=== PATIENT | female | born 1995 | race Caucasian/White ===

== ENCOUNTER 2016-05-21 06:29 | Observation (INO) ==
[2016-05-21 06:48] VITALS: BP 115/72
[2016-05-21 07:14] LABS: Bilirubin,Urine Negative (Negative); Blood,Urine Negative (Negative); Clarity,Urine Slightly Cloudy (Clear); Color,Urine Yellow (Yellow); Glucose,Urine (UA) Normal (Normal); Ketones,Urine 15 mg/dL (Negative); Leukocyte Esterase,Urine Moderate (Negative); Nitrite,Urine Negative (Negative); Protein,Urine Negative (Neg-Trace); Specific Gravity,Urine 1.025 (1.010-1.025); Urobilinogen,Urine Normal (Normal)
[2016-05-21 07:26] LABS: Amorphous Sediment,Urine Many (Few); Granular Casts,Urine Few per lpf (None Seen); Squamous Epithelial Cell,Urine Many per lpf (None-Few)
[2016-05-21 07:27] LABS: Bacteria,Urine Many per hpf (None-Few); RBC,Urine 0-3 per hpf (0-3)
[2016-05-21] MEDS ORDERED: Ringers Solution, Lactated 1,000 ML IVC ONE (07:53)
[2016-05-21] MEDS ORDERED: *HR* Promethazine 25 MG/ML VIAL IVP PRN (07:54)
[2016-05-21] MEDS ORDERED: Ringers Solution, Lactated 1,000 ML ONE (07:59)
[2016-05-21 08:09] LABS: Basophils # 0.1 K/mcL (0.0-0.2); Basophils % 0.4 %; Eosinophils # 0.3 K/mcL (0.0-0.6); Eosinophils % 1.1 %; Hematocrit 36.4 % (35.3-44.9); Hemoglobin 12.3 g/dL (11.5-15.4); Lymphocytes # 2.8 K/mcL (0.6-4.6); Lymphocytes % 11.2 %; Mean Corpuscular HGB Conc 33.8 g/dL (31.6-35.5); Mean Corpuscular Volume 91.7 fL (83.0-100.0); Mean Platelet Volume 10.2 fL (9.4-12.4); Monocytes # 2.9 K/mcL (0.0-1.3); Monocytes % 11.3 %; Neutrophils # 18.7 K/mcL (1.6-8.9); Platelet Count 383 K/mcL (140-400); Red Blood Count 3.97 M/mcL (3.82-4.97); Red Cell Distribution Width 13.2 % (11.5-14.5)
[2016-05-21 08:18] LABS: BUN/Creatinine Ratio 11 (6-26); Blood Urea Nitrogen 6 mg/dL (7-20); Calcium 9.2 mg/dL (8.6-10.8); Carbon Dioxide 20 mEq/L (19-29); Chloride 105 mEq/L (98-109); Glucose 91 mg/dL (70-99); Osmolality,Calculated 281 (280-300); Potassium 3.6 mEq/L (3.5-4.5); Sodium 137 mEq/L (136-145); eGFR For African Americans > 60; eGFR For Non-African Americans > 60
--- NOTE | 2016-05-21 08:45 | OB/GYN Progress Note ---
Date of Encounter: 05/21/16 Time of Encounter: 08:42 - Assessment and Plan (1) Nausea and vomiting during Current Visit: Yes Status: Acute IV LR 2 liter bolus. CBC and Chem. Phenergan PRN for nausea. Plan to discharge home with rx for phenergan if pt able to tolerate PO liquids after fluid bolus. (2) 36 weeks gestation of Current Visit: Yes Status: Acute (3) NST (non-stress test) reactive Current Visit: Yes Status: Acute (4) Decreased movement affecting management of mother, antepartum Current Visit: Yes Status: Acute Pt notes good movement since arrival to triage. Subjective - Subjective Interval history: 20 year-old presenting at 36w2d with c/o nausea, vomiting, dizziness x 4 days. She reports decreased movement that has improved since she arrived to triage. No LOF, VB, or strong contractions. She states she has been nauseated and vomiting after eating for the last 4 days. She states she has also felt weak and dizzy. She has tried taking zofran ODT at home without improvement of sx. Antepartum ROS: movement normal, no loss of fluid, no vaginal bleeding, no contractions Objective - Vital Signs Vital Signs: Vital Signs Temp Pulse Resp BP 05/21/16 06:37 98.9 F 123 16 115/72 Intake and Output 05/20/16 05/21/16 05/21/16 23:59 07:59 15:59 Other: Weight 58 kg Patient Weight 05/21/16 23:59 Weight 58 kg - Exam FHR: category 1 FHR comments: NST reactive Auscultation: bilateral: normal Abdomen: Present: soft, gravid. Absent: tenderness Uterus: Absent: tenderness - Labs Labs: Abnormal lab results WBC 25.2 K/mcL (4.3-11.1) H 05/21/16 07:58 Neutrophils # 18.7 K/mcL (1.6-8.9) H 05/21/16 07:58 Monocytes # 2.9 K/mcL (0.0-1.3) H 05/21/16 07:58 BUN 6 mg/dL (7-20) L 05/21/16 07:58 Creatinine 0.55 mg/dL (0.57-1.11) L 05/21/16 07:58 Urine Clarity Slightly Cloudy (Clear) A 05/21/16 07:00 Urine Ketones 15 mg/dL (Negative) H 05/21/16 07:00 Ur Leukocyte Esterase Moderate (Negative) H 05/21/16 07:00 Urine Microscopic WBC 5-15 per hpf (0-3) H 05/21/16 07:00 Ur Squamous Epith Cells Many per lpf (None-Few) H 05/21/16 07:00 Amorphous Sediment Many (Few) H 05/21/16 07:00 Urine Bacteria Many per hpf (None-Few) H 05/21/16 07:00 Granular Casts Few per lpf (None Seen) H 05/21/16 07:00 Ur Culture Indicated? YES (NO) A 05/21/16 07:00
== END 2016-05-21 12:30 | disposition home or self-care (01) ==
LOC: 1NENULAB
PROVIDERS: ADMIT Advanced Practice Midwife; ATTEND Advanced Practice Midwife

== ENCOUNTER 2016-06-15 05:03 | Inpatient (IN) ==
[~2016-06-15 05:03] MED LIST: Famotidine 20 MG/2 ML VIAL IVP PRN; Metoclopramide 10 MG/2 ML VIAL IVP PRN; Naloxone 0.4 MG/ML INJ IVP PRN
[2016-06-15] MEDS ORDERED: *HR* Nalbuphine 20 MG/ML AMPUL IVP PRN (05:12)
[2016-06-15] MEDS ORDERED: Ringers Solution, Lactated 1,000 ML IVC SCH (05:15)
[2016-06-15 05:36] LABS: Basophils # 0.1 K/mcL (0.0-0.2); Basophils % 0.4 %; Eosinophils # 0.3 K/mcL (0.0-0.6); Eosinophils % 1.1 %; Hematocrit 40.1 % (35.3-44.9); Hemoglobin 13.2 g/dL (11.5-15.4); Immature Granulocytes % 1.2 % (0-4); Lymphocytes # 3.3 K/mcL (0.6-4.6); Lymphocytes % 13.2 %; Mean Corpuscular HGB Conc 32.9 g/dL (31.6-35.5); Mean Corpuscular Hemoglobin 29.7 pg (28.0-33.3); Mean Corpuscular Volume 90.1 fL (83.0-100.0); Mean Platelet Volume 10.5 fL (9.4-12.4); Monocytes # 2.6 K/mcL (0.0-1.3); Monocytes % 10.3 %; Neutrophils # 18.2 K/mcL (1.6-8.9); Platelet Count 433 K/mcL (140-400); Red Blood Count 4.45 M/mcL (3.82-4.97); Red Cell Distribution Width 13.1 % (11.5-14.5); Segmented Neutrophils % 73.8 %
[2016-06-15] MEDS ORDERED: Epidural Premix (fent/bupiv) 110 ML EP SCH (05:45)
[2016-06-15] MEDS ORDERED: Epidural Premix (fent/bupiv) 110 ML EP ONE ×2 (05:47→08:10)
--- NOTE | 2016-06-15 06:34 | Anesthesia Evaluation PreOp ---
Date of Encounter: 06/15/16 Time of Encounter: 05:50 - Past History Planned Operation: CLARISA Cardiac History: Denies any Significant Hx Pulmonary History: Denies Any Significant HX VIDEOGAME TESTER History: Denies Any Significant HX Anesthesia History: No Prior Anesthetic Complications : Yes Test: Positive Alcohol Use: none Drug use: none Medications and Allergies One Tablet 1 tab PO DAILY 05/21/16 [History] Allergies Penicillins [PCN] Allergy (Mild, Verified 05/21/16 06:49) See Comments both parents allergic and wasw told she was unsure of reaction - Meds/Allergy Pre-op Review Medications Reviewed: Yes Allergies Reviewed: Yes Beta Blockers on Current Med List: No Anesthesia Results - Labs 06/15/16 05:18 Anesthesia Exam Height: 59" Weight: 62kg Pain Scale: 6 - HEENT Pupil (Motor): Pupils equal Mallampati: II Teeth: Normal Oral Opening: Greater than 3 - VIDEOGAME TESTER LOC: Oriented VIDEOGAME TESTER Motor: Normal RUE, Normal LUE, Normal RLE, Normal LLE, Normal Face VIDEOGAME TESTER Sensory: Normal: RUE, LUE, RLE, LLE, Face Anesthesia Assess/Plan ASA Score: 1 Modified Leeds Scale for Level of Consciousness: Cooperative, oriented, and tranquil Anesthetic Plan: Regional Autologous Blood: No Monitoring Plan: Standard Monitors
--- NOTE | 2016-06-15 06:38 | Anesthesia Procedures ---
Date of Encounter: 06/15/16 Time of Encounter: 05:50 Procedures: Anesthesia - Epidural/Spinal Patient ID/Chart reviewed: Yes Patient examined: Yes OB Eval: : 1 OB Eval: Hx Para: 0 OB Eval: Contractions: Non-stressed pattern Consent Obtained: Yes Supplemental Oxygen: None/Room Air Site Prep: Aseptic Technique, Sterile prep and drape, Povidone-Iodine 1% Patient position: upright Local Anesthetic: Lidocaine 1% Amount of Local Anesthetic used: 3 Touhy Needle Gauge: 18 Touhy Needle Depth (cm): 4 Catheter Depth at Skin (cm): 9 Test Dose (1.5% Lido + Epi): Volume given (mls): 3 Test Dose Result: Negative Infusion Rate (mls/hr): [address]: Tegaderm, Tape Interspace Used: L3-L4 Loss of Resistance (MISSY): Yes Blood: No CSF: No Paresthesia: No Procedure: moderately difficult two attempts at L3-4 space. scoliosis noted and explained to patient epidural may be difficult and the potential for SH was increased. Vitals + FHT's: stable throughout see nursing notes
--- NOTE | 2016-06-15 06:47 | OB/GYN History & Physical ---
Date of Encounter: 06/15/16 Time of Encounter: 06:44 Assessment and Plan (1) 39 weeks gestation of Current visit: Yes Status: Acute admitted for delivery (2) Spontaneous onset of labor Current visit: Yes Status: Acute Admit for labor Patient has epidural for pain management History of Present Illness Chief complaint: Spontaneous labor HPI: Ms. Baldwin is a 20 year old female at 39w6d presents to labor and delivery with contractions that became more uncomfortable around 0200. Patient denies LOF reports some blood show and reports +FM. Patient was 5cm on admission and progressed to 6cm. Patient was admitted for labor. Blood type is A +, Rubella: Immune, Hep B: Nonreactive, GBS: Negative. Past Med Surg Social Fam HX - Past Medical History Source: patient Medical history: no medical history Psychiatric history: no psych history - Past Surgical History Surgical History: no surgical history - Social History Smoking Status: Never smoker Smokeless Tobacco Status: No Alcohol use: none Drug use: none Current living situation: Home - Independent Activity Level: Independent ambulation Recent Out of Country Travel Within the Last 8 Weeks: No Exposure or Possible Exposure to Illness During Travel: No - Family History Mother Living Status: Still Living Hx Family Cardiac Disorders: No Hx Family Respiratory Disorders: No Hx Family Cancer: No Hx Family GI Disorders: No Hx Family Genitourinary Disorders: No Hx Family Endocrine Disorder: No Hx Family Musculoskeletal Disorders: No Hx Family Neuromuscular Disorders: No Hx Family Neurologic Disorders: No Hx Family HEENT Disorders: No Hx Family Autoimmune Disorders: No Hx Family Reproductive Disorders: No Hx Family Psychosocial Disorders: No Hx Family Medical Disorders: No Obstetrical History - Pregnancies : 1 Para: 0 Term: 0 : 0 Ab's: 0 Livin Medications and Allergies One Tablet 1 tab PO DAILY 05/21/16 [History] Allergies Penicillins [PCN] Allergy (Mild, Verified 05/21/16 06:49) See Comments both parents allergic and wasw told she was unsure of reaction Review of System OB - Constitutional Constitutional ROS IM: no chills, no fatigue, no fever(s), no headache(s), no night sweats - Cardiovascular Cardiovascular: no chest pain, no edema, no palpitations, no rapid heart rate, no syncope - Respiratory Respiratory: no cough, no dyspnea - Gastrointestinal Gastrointestinal: no abdominal pain, no constipation, no cramping, no diarrhea, no dysphagia, no heartburn, no nausea, no vomiting - Genitourinary Genitourinary: vaginal discharge, no abnormal vaginal bleeding, no dysuria, no flank pain, no urinary frequency, no urinary urgency, no vaginal odor, no vaginal pruritis Exam - Constitutional Constitutional: well developed, well nourished, no acute distress, average body habitus - HEENT HEENT: Normocephaly, Mucus Membranes Moist - Neck Neck exam: full ROM, supple - Lungs Respiratory exam: CTAB - Cardiovascular Cardiovascular exam: RRR, +S1, +S2 - Abdomen Abdomen: Present: bowel sounds normal, gravid, non tender - Extremities Extremities exam: full ROM, normal capillary refill Deep Tendon Reflex Grade: 2+ Normal - Cervix Dilation: 6 Effacement: 80 Station: -1 - Anus/Rectum Anus/Rectum: Present: normal perianal skin - Comments Comments: FHR 145 bpm moderate variability +15x15 accels early decels noted. Contractions 1-3 min apart. Results Result Diagrams: 06/15/16 05:18 Abnormal lab results WBC 24.7 K/mcL (4.3-11.1) H 06/15/16 05:18 Plt Count 433 K/mcL (140-400) H 06/15/16 05:18 Neutrophils # 18.2 K/mcL (1.6-8.9) H 06/15/16 05:18 Monocytes # 2.6 K/mcL (0.0-1.3) H 06/15/16 05:18 All other labs normal. - VTE Reasons for not Prescribing Prophylaxis: Treatment not Indicated - Low risk for VTE
--- NOTE | 2016-06-15 07:43 | OB Labor Progress Note ---
Date of Encounter: 06/15/16 Time of Encounter: 07:41 Labor Progress Note - Subjective Subjective: Patient breathing through contractions. Patient reports mild relief with epidural. Will notify anesthesia to check epidural. - Cervix Cervix: 7/90/0 - Heart Tones Heart Tones: 145 bpm moderate variability +15x15 accels no decels noted. - [place]: 1-3 min apart - Interventions Interventions: SVE, AROM. Moderate amount of clear fluid. - Plan Plan: Continue labor management.
[2016-06-15] MEDS ORDERED: *HR* Ropivacaine/PF 0.2% 10 ML AMPUL ONE (08:20)
[2016-06-15] MEDS ORDERED: *HR* FentaNYL (PF) 100 MCG/2 ML VIAL IVP ONE (09:28)
--- NOTE | 2016-06-15 09:33 | Anesthesia Progress Note ---
Date of Encounter: 06/15/16 Time of Encounter: 08:20 Anesthesia Note - Note Note: 06/15/16 09:18 patient evaluated for labor pain post epidural placement, sensory level checked and feeling noted down to top of thigh region. bolus dose given of 8 ml ropivicaine 0.2 % given at o820 in increments. vs stable throught. patient did not experience relief from bolus, offered to replace but patient instructed due to scoliosis the epidural may not work well again. patient refused replacement. 3 Vital Signs Time 0820 0825 0830 BP 117/70 105/55 118/73 Pulse 100 100 100 Resp 18 18 18 O2 Sat
[2016-06-15] MEDS ORDERED: Oxytocin 20 units/ LR 1000 mL 20 UNIT/1,000 ML BAG IVC ONE ×3 (10:03→14:22)
[2016-06-15] MEDS ORDERED: Lidocaine 1% 20 ML MDV ONE (10:25)
--- NOTE | 2016-06-15 12:30 | OB/GYN Procedure Note ---
Delivery - Delivery Date: 06/15/16 Provider: Romina Leslie Intrapartum events: none Delivery induction: none Delivery augmentation: rupture of membranes Delivery monitor: external FHT, external uterine Anesthesia: local, epidural (Epidural did not work. Patient declined replacement ) Estimated Blood Loss: 200 - (s) Infant A Delivery Date: 06/15/16 Delivery Time: 11:49 Presentation: vertex Position: VIKI Route of delivery: Gender: Female Viability: Viable Pounds: 6 Ounces: 9 Weight Gram: 2990 kg at 1 minute: 8 at 5 mins: 9 Shoulder Dystocia: not encountered Cord: nuchal cord (x1), 3 umbilical vessels, nuchal reduced - Repair Episiotomy: none Laceration Description: Perineal - 2nd Degree (repaired with 3-0 vicryl), Labial (left labial-repaired with 4-0 vicryl) - Complications Delivery complications: none Delivery comments: Patient using breathing techniques to cope with contractions. Patient reports sudden urge to push. Patient was completely dilated. Patient was placed in stirrups and prepped for delivery. Patient spontaneously delivered a female . A nuchal cord was encountered and loose. Nuchal was reduced. No shoulder dystocia or meconium was encountered. Vigorous female infant was placed on maternal abdomen. Cord was clamped and cut after pulsation ceased. Cord segment was collected. Placenta delivered spontaneously. 1% lidocaine was used to anesthetize for repair. A second degree laceration was repaired with 3- 0 vicryl and left labia was repaired with 4-0 vicryl. Patient tolerated well. All counts were correct. Infant is skin to skin with mother and both are stable in recovery. - Disposition Mom disposition: stable in LDR disposition: stable in LDR
[2016-06-15] MEDS ORDERED: Acetaminophen 325 MG TABLET PO PRN (14:22)
[2016-06-15] MEDS ORDERED: Ibuprofen 600 MG TABLET PO PRN (14:22)
[2016-06-15] MEDS ORDERED: Oxytocin 20 units/ LR 1000 mL 20 UNIT/1,000 ML BAG IV SCH (14:22)
[2016-06-15] MEDS ORDERED: Benzocaine/Menthol 56 GM AEROSOL SPRAY TP PRN (14:22)
[2016-06-15] MEDS: *HR* HYDROcodone/Acet 5/325 mg TABLET PO PRN (22:12)
[2016-06-16] MEDS: *HR* HYDROcodone/Acet 5/325 mg TABLET PO PRN (04:57)
[2016-06-16 08:17] VITALS: BP 109/76
[2016-06-16] MEDS ORDERED: Prenatal Vit/FA 1 EACH TABLET PO SCH (09:00)
--- NOTE | 2016-06-16 09:00 | Discharge Summary ---
Date of Encounter: 06/16/16 Time of Encounter: 08:56 - Discharge Diagnosis (1) Status post vaginal delivery Priority: Primary Status: Acute Comments: Meeting milestones - Discharge Medications Prescriptions: Ibuprofen [Motrin] 600 mg PO Q6HR PRN #60 tablet PRN Reason: Cramping Docusate [Colace] 100 mg PO BID #60 capsule Home Medications: One Tablet 1 tab PO DAILY 05/21/16 [History] Acetaminophen [Tylenol] 650 mg PO Q6HR PRN #0 tablet 06/16/16 [Rx] Benzocaine/Menthol [place] [Dermoplast [place]] 1 appl TP QID PRN #0 aerosol [Rx] Docusate [Colace] 100 mg PO BID #60 capsule 06/16/16 [Rx] Ibuprofen [Motrin] 600 mg PO Q6HR PRN #60 tablet 06/16/16 [Rx] Allergies/Adverse Reactions: Allergies Penicillins [PCN] Allergy (Mild, Verified 05/21/16 06:49) See Comments both parents allergic and wasw told she was unsure of reaction Data Procedures and tests throughout hospitalization: Laboratory Tests 06/15/16 05:18 WBC 24.7 H RBC 4.45 Hgb 13.2 Hct 40.1 MCV 90.1 MCH 29.7 MCHC 32.9 RDW 13.1 Plt Count 433 H MPV 10.5 Immature Gran % 1.2 Seg Neutrophils % 73.8 Lymphocytes % 13.2 Monocytes % 10.3 Eosinophils % 1.1 Basophils % 0.4 Neutrophils # 18.2 H Lymphocytes # 3.3 Monocytes # 2.6 H Eosinophils # 0.3 Basophils # 0.1 Date of admission: 06/15/16 05:03 Primary care physician: PCP NO Consults: 06/15/16 14:22 Consult to Adjunct Faculty [CONS] Routine Comment: Vaginal delivery, consult needed Discharging clinician: Nichelle Maguire Anticipated date of discharge: 06/16/16 - Patient Status Disposition: Home, Self-Care Condition: Good Functional capacity at discharge: independent ambulation Overall status at discharge: patient is back to baseline - Discharge Instructions Follow Up With: NO,PCP [Primary Care Provider] - Romina Leslie CNM [Advanced Practice Nurse] - - Diet and Activity Activity: resume usual activities as tolerated Diet: regular diet Hospital Course Reason for admission: active labor Delivery: Episiotomy: none Laceration: 2nd degree Other procedures: none complications: none Discharge diagnosis: IUP at term delivered baby: female Hospital course: - Delivery Date: 06/15/16 Provider: Romina Leslie Intrapartum events: none Delivery induction: none Delivery augmentation: rupture of membranes Delivery monitor: external FHT, external uterine Anesthesia: local, epidural (Epidural did not work. Patient declined replacement ) Estimated Blood Loss: 200 - (s) Infant A Delivery Date: 06/15/16 Delivery Time: 11:49 Presentation: vertex Position: VIKI Route of delivery: Gender: Female Viability: Viable Pounds: 6 Ounces: 9 Weight Gram: 2990 kg at 1 minute: 8 at 5 mins: 9 Shoulder Dystocia: not encountered Cord: nuchal cord (x1), 3 umbilical vessels, nuchal reduced - Repair Episiotomy: none Laceration Description: Perineal - 2nd Degree (repaired with 3-0 vicryl), Labial (left labial-repaired with 4-0 vicryl) - Complications Delivery complications: none Delivery comments: Patient using breathing techniques to cope with contractions. Patient reports sudden urge to push. Patient was completely dilated. Patient was placed in stirrups and prepped for delivery. Patient spontaneously delivered a female . A nuchal cord was encountered and loose. Nuchal was reduced. No shoulder dystocia or meconium was encountered. Vigorous female was placed on maternal abdomen. Cord was clamped and cut after pulsation ceased. Cord segment was collected. Placenta delivered spontaneously. 1% lidocaine was used to anesthetize for repair. A second degree laceration was repaired with 3- 0 vicryl and left labia was repaired with 4-0 vicryl. Patient tolerated well. All counts were correct. Infant is skin to skin with mother and both are stable in recovery. - Disposition Mom disposition: Home PP day 1 in stable condition [place] disposition: Home with mother Time Attestation: Total time spent providing and/or coordinating discharge services: Time Spent: Less than 30 minutes Exam - Constitutional Vitals: Temp Pulse Resp BP Pulse Ox 98 F 93 16 109/76 97 06/16/16 08:12 06/16/16 08:12 06/16/16 08:12 06/16/16 08:12 06/16/16 08:12 General appearance IM: A&O X 3, no acute distress - Respiratory Respiratory exam: Present: CTAB. Absent: respiratory distress - Cardiovascular Cardiovascular exam IM: Present: RRR, +S1, +S2. Absent: irregular rhythm - GI/Abdominal GI/Abdominal exam IM: normal bowel sounds - Uterine Tone: Firm Uterus Position: 1 Finger Below Umbilicus - Extremities Exam Extremities exam IM: Present: normal inspection. Absent: calf tenderness - Neurological Exam Neurological exam: normal gait, oriented X3 - Psychiatric Additional comments: Reports good mood
== END 2016-06-16 13:00 | disposition home or self-care (01) | DRG 560 ==
LOC: 1NENULAB → 1NENUOBS 14:22
PROVIDERS: ADMIT Advanced Practice Midwife; ATTEND Advanced Practice Midwife